=== PATIENT | male | born 2000 | race Caucasian/White ===

== ENCOUNTER → 2021-01-28 | Outpatient (CLI) | payer OTHER | LOC: COL.RAD 07:21 | DX: K76.0 Fatty (change of) liver, not elsewhere classified (principal) ==

== ENCOUNTER → 2021-02-06 | Day surgery (SDC) | payer OTHER ==
[~2021-02-06] VITALS: Ht 182.9 cm; Wt 68.6 kg
[2021-02-06 13:15] VITALS: BP 117/77; PULSE 68; TEMP 98.4
[2021-02-06 15:00] VITALS: BP 117/70; PULSE 57; TEMP 97.7
[2021-02-06 15:15] VITALS: BP 115/73; PULSE 56
[2021-02-06 15:30] VITALS: BP 115/74; PULSE 59
--- NOTE | 2021-02-06 16:30 | NUR ---
1500- Pt returns from endo procedure via cart to [facility] . Pt ambulates from cart to recliner with RN assist. Monitors on and alarms set. Call light within reach. Pt alert and oriented. Pt requests juice, water, muffins. Pt denies any pain or nausea. 1515- Pt taking food and drink well. No complications noted. 1530- Discharge instructions given to pt. All questions answered to pt and family satisfaction. Handed to pt are a thank you card and discharge information. 1550- Dr in to see patient 1615- IV d/c without complication. 1630- Pt transferred out of the hospital via wheelchair, to private vehicle driven by father.
== END ==
LOC: SDCO 12:00
DX: K31.7 Polyp of stomach and duodenum (principal); K29.70 Gastritis, unspecified, without bleeding; K52.9 Noninfective gastroenteritis and colitis, unspecified; K51.00 Ulcerative (chronic) pancolitis without complications; Z20.822 Contact with and (suspected) exposure to COVID-19
CPT/HCPCS: J2704; J7120